=== PATIENT | male | born 1945 ===

== ENCOUNTER 2020-08-27 04:55 | Day surgery (SDC) | payer OTHER | END 2020-08-27 13:50 | disposition home or self-care (01) | LOC: CIR.AMB 04:55 | PROVIDERS: ATTEND Specialist | DX: K40.90 Unilateral inguinal hernia, without obstruction or gangrene, not specified as recurrent (principal); Z20.822 Contact with and (suspected) exposure to COVID-19 ==

== ENCOUNTER 2020-12-14 10:56 | Emergency (ER) | payer OTHER ==
[~2020-12-14] VITALS: Ht 165.1 cm; Wt 69.4 kg
[2020-12-14] MEDS ORDERED: KETO10TA2 PO ×2 (11:17→17:55)
[2020-12-14] MEDS ORDERED: TAMS0.4C PO (17:55)
[2020-12-14] MEDS ORDERED: CIPRO500 MG PO (17:55)
== END 2020-12-14 18:48 | disposition home or self-care (01) ==
LOC: ER 10:56
DX: N20.2 Calculus of kidney with calculus of ureter (principal); R10.84 Generalized abdominal pain